=== PATIENT | female | born 1980 | race African-American/Black ===

== ENCOUNTER → 2017-01-13 | Outpatient (CLI) | payer OTHER ==
[2015-06-29 10:29] VITALS: BP 129/82
[~2017-01-13] MED LIST: ARIP5TAB6 PO; CYCL10TA2 PO; HYDR-2666 PO; METH-38 PO; flexeril
--- NOTE | 2017-01-13 12:44 | RAD ---
PROCEDURE MRI lumbar spine without contrast. HISTORY Low back pain with worsening right leg radiculopathy TECHNIQUE Multiplanar, multi sequential, noncontrast MR imaging was performed of the lumbar spine. COMPARISON September 09, 2015 FINDINGS Lumbar vertebral body stature is preserved. There is again grade 1 anterior spondylolisthesis at L5-S1, bilateral L5 spondylolysis. There is somewhat greater degree of moderate to severe degenerative disc disease at L5-S1 with new L5-S1 endplate edema. Conus terminates normally at L2. L3-4: Spinal canal and neural foramina are adequate L4-5: Neural foramina and spinal canal are adequate. L5-S1: Spinal canal is adequate. There is partial uncovering of the posterior aspect of the disc due to spondylolisthesis with superimposed bulge/protrusions eccentric into the inferior neural foramina bilaterally overall greater especially on the left. There is moderate to severe neural foramina compromise bilaterally with impingement of the exiting L5 nerve roots bilaterally. IMPRESSION 1. There is again grade 1 anterior spondylolisthesis at L5-S1, bilateral L5 spondylolysis. There has been progression of moderate to severe degenerative disc disease at L5-S1 with new L5-S1 endplate edema likely reactive/degenerative in etiology. There is bilateral L5-S1 neural foramina compromise with impingement of the exiting L5 nerve roots bilaterally relatively greater than previously, bulge/protrusions superimposed on partial uncovering of the posterior aspect of the disc. Electronically signed by: Faizan Parra MD (Jan 13, 2017 12:42:35)
== END | disposition home or self-care (01) ==
LOC: MRI 12:34
PROVIDERS: ATTEND Family Medicine
DX: M47.897 Other spondylosis, lumbosacral region (principal); M43.17 Spondylolisthesis, lumbosacral region; M51.37 Other intervertebral disc degeneration, lumbosacral region
CPT/HCPCS: 72148

== ENCOUNTER 2017-10-23 01:29 | Emergency (ER) | payer OTHER ==
[2017-10-23] MEDS: IBUPROFEN 600 MG TABLET. PO (03:41)
[2017-10-23] MEDS: ACETAMINOPHEN 325 MG TABLET. PO (03:41)
== END 2017-10-23 04:04 | disposition home or self-care (01) ==
LOC: ER 01:29
DX: J40 Bronchitis, not specified as acute or chronic (principal); J06.9 Acute upper respiratory infection, unspecified; I10 Essential (primary) hypertension; G89.29 Other chronic pain; Z88.0 Allergy status to penicillin
CPT/HCPCS: 71020; 99284

== ENCOUNTER → 2020-11-06 | Outpatient (CLI) | payer OTHER ==
[2017-10-23 02:12] VITALS: BP 165/86
[~2020-11-06] MED LIST changes: +ARIP5TAB13 PO; -ARIP5TAB6 PO; +AZIT250T PO; -HYDR-2666 PO; +HYDR-2761 PO; +IBUP-1007 PO
[2020-11-06 09:41] LABS: BASO # 0.1 x10^3/uL (0.0-0.2); BASO % 1 % (0-3); EOS # 0.1 x10^3/uL (0.0-0.7); EOS % 1 % (0-3); HEMATOCRIT 44.5 % (36.0-47.0); LYMPH # 2.2 x10^3/uL (1.0-4.8); LYMPH % 26 % (24-48); MEAN CORPUSCULAR HEMOGLOBIN 28 pg (25-35); MEAN CORPUSCULAR HGB CONC 34 g/dL (31-37); MEAN CORPUSCULAR VOLUME 84 fL (79-100); MONO # 0.9 x10^3/uL (0.0-1.1); MONO % 11 % (0-9); NEUT % 60 % (31-73); PLATELET COUNT 369 x10^3/uL (140-400); RED BLOOD COUNT 5.29 x10^6/uL (3.50-5.40); RED CELL DISTRIBUTION WIDTH 14.8 % (11.5-14.5); WHITE BLOOD COUNT 8.3 x10^3/uL (4.0-11.0)
== END ==
LOC: LAB 09:01
PROVIDERS: ATTEND Family Medicine
DX: D64.9 Anemia, unspecified (principal)
CPT/HCPCS: 36415; 85025